=== PATIENT | female | born 1980 | race Caucasian/White ===

== ENCOUNTER 2021-07-20 06:26 | Emergency (ER) | payer MEDICARE, MEDICAID ==
[2021-07-20] MEDS ORDERED: Ondansetron 4 MG/2 ML SDV ONE (07:01)
[2021-07-20] MEDS ORDERED: LORazepam 2 MG/ML SDV ONE (07:06)
--- NOTE | 2021-07-20 07:12 | EDM.PDOC ---
ED HPI GENERAL MEDICAL PROBLEM - General Chief Complaint: Neuro Symptoms/Deficits Stated Complaint: stroke Time Seen by Provider: 07/20/21 06:31 Source of Information: Reports: Other (significant other) History Limitations: Reports: Other (stroke) - History of Present Illness INITIAL COMMENTS - FREE TEXT/NARRATIVE: Patient comes to ER with stroke symptoms. Last known well was between 3-3:30am when her significant other saw her sitting up in bed/complaining of arm pain. Per S.O. that is not unusual for patient as she has chronic issues with arm/shoulder pain and paresthesias in her arm that can bother her at night. She went back to sleep. S.O. notes that he later found her on the floor shortly before 6am and called 911. EMS unit noted obvious stroke symptoms. Normal blood sugar 125 on scene. Patient combative. Prolonged time getting her down stairs and loaded into ambulance. S.O says patient has no stroke history. 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 Blood thinner she takes daily as SQ injection/presumably it is Lovenox. He adds that she has stents in her legs. Medically retired because of this/on disability. Patient continues to be combative in ER/restless. Noted to be unable to move right side and has left corner of mouth droop. Garbled speech. Patient has not been here before. S.O. says they recently moved to area. 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 [Unable to Verify Home Med List] 07/20/21 [History] Past Medical History - History Comment History Comment: Unable to get full health history Social & Family History - Tobacco Use Tobacco Use Status *Q: Current Every Day Tobacco User Packs/Tins Daily: 0.5 - Caffeine Use Caffeine Use: Reports: Other (occasional energy drinks) - Alcohol Use Alcohol Use History: No - Recreational Drug Use Recreational Drug Use: No Drug Use in Last 12 Months: No ED ROS GENERAL - Review of Systems Review Of Systems: Unable To Obtain (patient has no clear speech/restless and combative) Reason Not Obtained: Patient having stroke/unable to communicate ED EXAM, GENERAL - Physical Exam Exam: See Below Exam Limited By: Uncooperative General Appearance: Other (awake, wants to be near significant other, not cooperative with exam at times/restless and moving around using left limbs/back) Eye Exam: Bilateral Eye: EOMI, PERRL, Other (Eyes appear to be conjugate, Patient tried to follow light with eyes. Moved L/R/up but not down) Ears: Normal External Exam, Hearing Grossly Normal Nose: No: Nasal Deformity, Nasal Swelling, Nasal Drainage Throat/Mouth: Normal Lips Head: Other (left corner mouth drooping). No: Facial Swelling Neck: Supple Respiratory/Chest: No Respiratory Distress, Lungs Clear, Normal Breath Sounds, No Accessory Muscle Use Cardiovascular: Regular Rate, Rhythm, No Murmur GI/Abdominal: Soft, Non-Tender, No Distention (Female) Exam: Deferred Rectal (Female) Exam: Deferred Back Exam: Normal Inspection Extremities: Normal Capillary Refill, Other (Unable to grasp with right hand, no movement right hand/leg/foot) Neurological: Inattentive, Other (right sided weakness arm/leg and left corner mouth droop. Garbled speech) Psychiatric: Anxious Skin Exam: Warm, Dry, Intact, Normal Color #1 Interpretation EKG Date: 07/20/21 Time: 07:04 Rhythm: NSR Rate (Beats/Min): 74 [place]: Normal P-Wave: Present QRS: Normal ST-T: Normal QT: Normal Comparison: NA - No Prior EKG Course - Orders/Labs/Meds Orders: Active Orders 24 hr Category Date Time Status Head wo Cont [CT] Routine Exams 07/20/21 06:50 Taken Labs: Laboratory Tests 07/20/21 07/20/21 07/20/21 Range/Units 06:40 06:40 06:40 WBC 14.1 H (4.0-10.2) K/uL RBC 4.25 (3.77-5.09) M/uL Hgb 14.9 (11.7-15.5) g/dL Hct 41.9 (34.0-46.0) % MCV 98.6 H (84.0-98.0) fL MCH 35.1 H (28.2-33.3) pg MCHC 35.6 (31.7-36.0) g/dL RDW 12.4 (11.2-14.1) % Plt Count 585 H (150-350) K/uL Neut % (Auto) 81.7 H (45.0-80.0) % Lymph % (Auto) 11.8 (10.0-50.0) % [facility] % (Auto) 5.2 (2.0-14.0) % Eos % (Auto) 0.9 (0.0-5.0) % Baso % (Auto) 0.4 (0.0-2.0) % Neut # (Auto) 11.54 H (1.40-7.00) K/uL Lymph # (Auto) 1.67 (0.50-3.50) K/uL [facility] # (Auto) 0.74 (0.00-1.00) K/uL Eos # (Auto) 0.13 (0.00-0.50) K/uL Baso # (Auto) 0.05 (0.00-0.20) K/uL PT 9.4 L (9.5-12.0) SEC INR 0.9 APTT 21.9 L (24.5-32.8) SEC D-Dimer, Quantitative 921 H (0-400) ng/mL Sodium (136-145) mmol/L Potassium (3.5-5.1) mmol/L Chloride (98-107) mmol/L Carbon Dioxide (21.0-32.0) mmol/L Anion Gap (7-15) meq/L BUN (7-18) mg/dL Creatinine (0.51-1.17) mg/dL Est Cr Clr Drug Dosing Estimated GFR (MDRD) mL/min Glucose (70-99) mg/dL Calcium (8.5-10.1) mg/dL Magnesium (1.8-2.4) mg/dL Total Bilirubin (0.2-1.0) mg/dL AST (15-37) U/L ALT (12-78) U/L Alkaline Phosphatase (46-116) IU/L Creatine Kinase (26-308) U/L Troponin I High Sens (<=51) ng/L NT-Pro-B Natriuret Pep (0-125) pg/mL Total Protein (6.4-8.2) g/dL Albumin (3.4-5.0) g/dL SARS-CoV-2 Ag (Rapid) (NEGATIVE) 07/20/21 07/20/21 Range/Units 06:40 07:55 WBC (4.0-10.2) K/uL RBC (3.77-5.09) M/uL Hgb (11.7-15.5) g/dL Hct (34.0-46.0) % MCV (84.0-98.0) fL MCH (28.2-33.3) pg MCHC (31.7-36.0) g/dL RDW (11.2-14.1) % Plt Count (150-350) K/uL Neut % (Auto) (45.0-80.0) % Lymph % (Auto) (10.0-50.0) % [facility] % (Auto) (2.0-14.0) % Eos % (Auto) (0.0-5.0) % Baso % (Auto) (0.0-2.0) % Neut # (Auto) (1.40-7.00) K/uL Lymph # (Auto) (0.50-3.50) K/uL [facility] # (Auto) (0.00-1.00) K/uL Eos # (Auto) (0.00-0.50) K/uL Baso # (Auto) (0.00-0.20) K/uL PT (9.5-12.0) SEC INR APTT (24.5-32.8) SEC D-Dimer, Quantitative (0-400) ng/mL Sodium 141 (136-145) mmol/L Potassium 4.6 (3.5-5.1) mmol/L Chloride 104 (98-107) mmol/L Carbon Dioxide 24.6 (21.0-32.0) mmol/L Anion Gap 12.4 (7-15) meq/L BUN 10 (7-18) mg/dL Creatinine 0.80 (0.51-1.17) mg/dL Est Cr Clr Drug Dosing TNP Estimated GFR (MDRD) > 60 mL/min Glucose 141 H (70-99) mg/dL Calcium 8.8 (8.5-10.1) mg/dL Magnesium 1.7 L (1.8-2.4) mg/dL Total Bilirubin 0.4 (0.2-1.0) mg/dL AST 23 (15-37) U/L ALT 33 (12-78) U/L Alkaline Phosphatase 75 (46-116) IU/L Creatine Kinase 184 (26-308) U/L Troponin I High Sens 12 (<=51) ng/L NT-Pro-B Natriuret Pep 55 (0-125) pg/mL Total Protein 6.9 (6.4-8.2) g/dL Albumin 3.8 (3.4-5.0) g/dL SARS-CoV-2 Ag (Rapid) Negative (NEGATIVE) Meds: Medications Discontinued Medications Generic Name Dose Route Start Last Admin Trade Name Freq PRN Reason Stop Dose Admin Lorazepam Confirm 07/20/21 07:06 Lorazepam 2 Mg/Ml Sdv Administered 07/20/21 07:07 Dose 2 mg .ROUTE .STK-MED ONE Lorazepam 1 mg 07/20/21 07:52 Lorazepam 2 Mg/Ml Sdv IVPUSH 07/20/21 07:53 ONETIME ONE Ondansetron HCl Confirm 07/20/21 07:01 Ondansetron 4 Mg/2 Ml Sdv Administered 07/20/21 07:02 Dose 4 mg .ROUTE .STK-MED ONE - Radiology Interpretation Free Text/Narrative:: CT obtained and negative for acute changes per [facility] at 0651. - Re-Assessments/Exams Free Text/Narrative Re-Assessment/Exam: 07/20/21 07:33 GCS of 12 at time of arrival NIH stroke scale [address] study. Call placed to [facility] immediately after CT results available and patient reviewed with /Neuro. He accepted patient for transfer to [facility] for further evaluation. Will go by flight given severity of symptoms and last known well time. Not candidate for anti-platelet therapy as she is already on daily Lovenox per . WBC 14.1/elevated platelets 585/elevated DDimer 921/elevated PT 9.4 and APTT 21.9/low Mag 1.7/low Repeat NIH stroke scale improved to 21 Patient received Zofran. Also given Ativan due to patient's agitation. Departure - Departure Time of Disposition: 07:30 Disposition: DC/Tfer to Acute Hospital 02 Condition: Serious Clinical Impression: Stroke-like symptoms, Hypomagnesemia - Discharge Information Referrals: PCP,Unknown [Primary Care Provider] - Forms: ED Department Discharge - My Orders Last 24 Hours: My Active Orders 07/20/21 06:50 Head wo Cont [CT] Routine - Assessment/Plan Last 24 Hours: My Active Orders 07/20/21 06:50 Head wo Cont [CT] Routine
[2021-07-20 07:26] LABS: ANION GAP 12.4 meq/L (7-15); CHLORIDE,CL 104 mmol/L (98-107); SODIUM,NA 141 mmol/L (136-145)
[2021-07-20 07:33] LABS: PTT,PARTIAL THROMBOPLSTIN TIME 21.9 SEC (24.5-32.8)
[2021-07-20] MEDS ORDERED: LORazepam 2 MG/ML SDV IVPUSH ONE (07:52)
== END 2021-07-20 08:09 ==
LOC: LL.ED 06:26
DX: I63.9 Cerebral infarction, unspecified (principal); E83.42 Hypomagnesemia; R29.719 NIHSS score 19; Z72.0 Tobacco use; Z20.822 Contact with and (suspected) exposure to COVID-19
CPT/HCPCS: 36415; 70450; 80053; 82550; 83735; 83880; 84484; 85025; 85379; 85610; 85730; 87426; 93005; 93010; 99284; 99285-25; J2060; J2405